=== PATIENT | female | born 1960 | race Caucasian/White ===

== ENCOUNTER 2021-06-12 12:07 | Inpatient (IN) | payer OTHER ==
[2021-06-12 12:56] LABS: Hemoglobin 16.6 g/dL (12.0-15.5); Mean Corpuscular HGB CONC 33.5 g/dL (32.0-36.0); Mean Corpuscular Hemoglobin 32.4 pg (27.0-33.0); Mean Corpuscular Volume 96.7 fl (81.6-98.3); Mean Platelet Volume 9.4 fl (7.4-10.4); Platelet Count 324 10x3/uL (150-450); RBC Distribution Width 13.4 % (11.5-14.5); Red Blood Cell (RBC) Count 5.13 10x6/uL (3.90-5.03); White Blood Cell (WBC) Count 12.2 10x3/uL (3.5-10.5)
[2021-06-12 12:58] LABS: MDiff Complete? YES
[2021-06-12] MEDS ORDERED: Enoxaparin Sodium 80 MG/0.8 ML SYRINGE ONE (13:28)
[2021-06-12] MEDS ORDERED: Magnesium 2 GM/50 ML BAG (IN WATER) ONE (13:29)
[2021-06-12] MEDS ORDERED: Aspirin 325 MG TAB ONE (13:29)
[2021-06-12] MEDS ORDERED: Diltiazem 125 MG/25 ML ONE (13:29)
[2021-06-12 13:36] LABS: Eosinophils 2 % (0-10); Lymphocytes 54 % (21-51); Monocytes 10 % (0-10); Neutrophil 31 % (42-75); Reactive Lymphocytes 2 % (0-10)
[2021-06-12 13:37] LABS: Platelet Morphology Comment Appears Adequate; RBC Morphology Normal
[2021-06-12 13:51] LABS: ALT (SGPT) 10 U/L (8-55); AST (SGOT) 11 U/L (5-34); Albumin 3.9 g/dL (3.4-4.8); Alkaline Phosphatase 73 U/L (40-110); Anion Gap 16 mmol/L (10-20); BUN (Urea Nitrogen) 10 mg/dL (9.8-20.1); Bilirubin, Total 0.3 mg/dL (0.2-1.2); Calc. Creatinine Clearance 0 mL/min (70-130); Calcium 9.2 mg/dL (7.8-10.44); Carbon Dioxide 22 mmol/L (23-31); Chloride 106 mmol/L (98-107); Globulin 3.2 g/dL (2.4-3.5); Glucose 159 mg/dL (80-115); Potassium 4.2 mmol/L (3.5-5.1); Protein, Total 7.1 g/dL (5.8-8.1); Sodium 140 mmol/L (136-145)
[2021-06-12] MEDS ORDERED: hydrOXYzine 25 MG TAB PO PRN (18:30)
[2021-06-12 18:31] LABS: SARS-CoV-2 NAA Rapid Test Not Detected (NotDetected)
[2021-06-12] MEDS: Guaifenesin DM 100-10/5 ML UDCUP PO PRN (19:57)
[2021-06-12] MEDS: Famotidine 20 MG TAB PO SCH (21:12)
[2021-06-12] MEDS: traZODone HCl 50 MG TAB PO PRN (21:12)
[2021-06-12] MEDS: Atorvastatin Calcium 20 MG TAB PO SCH (21:12)
[2021-06-12 21:40] VITALS: BMI 29.8
[2021-06-12] MEDS ORDERED: Enoxaparin Sodium 80 MG/0.8 ML SYRINGE SC SCH (22:15)
[2021-06-12] MEDS: Diltiazem 125 MG in Sodium Chloride 0.9% 100 ML IVPB SCH (22:18)
[2021-06-13] MEDS: Guaifenesin DM 100-10/5 ML UDCUP PO PRN ×2 (01:31→14:54)
[2021-06-13 05:40] LABS: #Basophils 0.1 10x3/uL (0.0-0.2); #Eosinphils 0.1 10x3/uL (0.0-0.5); #Monocytes 0.9 10x3/uL (0.0-1.1); #Neutrophils 4.6 10x3/uL (1.5-8.4); %Basophils 0.6 % (0.0-2.0); %Eosinophils 1.4 % (0.0-6.0); %Lymphocytes 40.7 % (18.0-47.0); %Monocytes 9.6 % (0.0-10.0); %Neutrophils 47.2 % (40.0-75.0); Hemoglobin 15.9 g/dL (12.0-15.5); Mean Corpuscular HGB CONC 32.9 g/dL (32.0-36.0); Mean Corpuscular Hemoglobin 32.7 pg (27.0-33.0); Mean Corpuscular Volume 99.4 fl (81.6-98.3); Mean Platelet Volume 9.6 fl (7.4-10.4); Platelet Count 292 10x3/uL (150-450); RBC Distribution Width 13.2 % (11.5-14.5); Red Blood Cell (RBC) Count 4.86 10x6/uL (3.90-5.03); White Blood Cell (WBC) Count 9.7 10x3/uL (3.5-10.5)
[2021-06-13] MEDS: Diltiazem 125 MG in Sodium Chloride 0.9% 100 ML IVPB SCH (05:44)
[2021-06-13 05:53] LABS: Anion Gap 14 mmol/L (10-20); BUN (Urea Nitrogen) 9 mg/dL (9.8-20.1); Calc. Creatinine Clearance 92 mL/min (70-130); Calcium 9.2 mg/dL (7.8-10.44); Carbon Dioxide 25 mmol/L (23-31); Chloride 107 mmol/L (98-107); Glucose 160 mg/dL (80-115); Potassium 4.3 mmol/L (3.5-5.1); Sodium 142 mmol/L (136-145)
[2021-06-13] MEDS: Famotidine 20 MG TAB PO SCH ×2 (08:16→20:51)
[2021-06-13] MEDS: Aspirin 81 mg Enteric Coated Tablet PO SCH (08:17)
[2021-06-13] MEDS: Lisinopril 10 MG TAB PO SCH (08:17)
[2021-06-13] MEDS: OLANZapine 5 MG TAB PO SCH (08:21)
[2021-06-13] MEDS ORDERED: Diltiazem 125 MG in Sodium Chloride 0.9% 100 ML IVPB SCH (08:45)
[2021-06-13] MEDS ORDERED: Enoxaparin Sodium 80 MG/0.8 ML SYRINGE SC SCH (09:00)
[2021-06-13] MEDS ORDERED: Clopidogrel Bisulfate 75 MG TAB PO SCH (09:00)
[2021-06-13] MEDS: Acetaminophen 325 MG TAB PO PRN (10:17)
[2021-06-13] MEDS: Nicotine 21 MG PATCH TOP SCH (11:39)
[2021-06-13] MEDS ORDERED: Dronedarone HCl 400 MG TAB PO SCH (18:45)
[2021-06-13] MEDS: Apixaban 5 MG TAB PO SCH (20:51)
[2021-06-13] MEDS: traZODone HCl 50 MG TAB PO PRN (20:52)
[2021-06-13] MEDS: Metoprolol Tartrate 25 MG TAB PO SCH (20:52)
[2021-06-13] MEDS: Atorvastatin Calcium 20 MG TAB PO SCH (20:52)
[2021-06-14] MEDS: Guaifenesin DM 100-10/5 ML UDCUP PO PRN ×3 (00:28→11:57)
[2021-06-14] MEDS: Acetaminophen 325 MG TAB PO PRN ×2 (02:15→14:17)
[2021-06-14] MEDS: Dronedarone HCl 400 MG TAB PO SCH ×2 (09:17→16:46)
[2021-06-14] MEDS: Lisinopril 10 MG TAB PO SCH (09:17)
[2021-06-14] MEDS: Aspirin 81 mg Enteric Coated Tablet PO SCH (09:17)
[2021-06-14] MEDS: Famotidine 20 MG TAB PO SCH ×2 (09:18→20:05)
[2021-06-14] MEDS: Apixaban 5 MG TAB PO SCH ×2 (09:18→20:04)
[2021-06-14] MEDS: Metoprolol Tartrate 25 MG TAB PO SCH ×2 (09:18→20:05)
[2021-06-14] MEDS: OLANZapine 5 MG TAB PO SCH (09:21)
[2021-06-14] MEDS: Nicotine 21 MG PATCH TOP SCH (12:27)
[2021-06-14] MEDS: Transdermal Patch Removal TOP SCH (12:27)
[2021-06-14] MEDS: Atorvastatin Calcium 20 MG TAB PO SCH (20:04)
[2021-06-14] MEDS: traZODone HCl 50 MG TAB PO PRN (22:12)
[2021-06-14] MEDS ORDERED: traZODone HCl 50 MG TAB PO PRN (22:45)
[2021-06-14] MEDS ORDERED: traZODone HCl 50 MG TAB PO SCH (22:45)
[2021-06-15] MEDS: Acetaminophen 325 MG TAB PO PRN ×3 (02:13→20:41)
[2021-06-15] MEDS: Guaifenesin DM 100-10/5 ML UDCUP PO PRN ×2 (02:51→20:26)
[2021-06-15] MEDS: Famotidine 20 MG TAB PO SCH ×2 (08:54→20:26)
[2021-06-15] MEDS: Dronedarone HCl 400 MG TAB PO SCH ×2 (08:54→19:13)
[2021-06-15] MEDS: Aspirin 81 mg Enteric Coated Tablet PO SCH (08:55)
[2021-06-15] MEDS: Apixaban 5 MG TAB PO SCH ×2 (08:55→20:26)
[2021-06-15] MEDS: Metoprolol Tartrate 25 MG TAB PO SCH ×2 (08:55→20:27)
[2021-06-15] MEDS: OLANZapine 5 MG TAB PO SCH (09:06)
[2021-06-15] MEDS: Docusate 100 MG CAP PO SCH ×2 (10:32→20:30)
[2021-06-15] MEDS: Miconazole Nitrate Powder 2% 45 gm TOP SCH ×2 (10:59→20:31)
[2021-06-15] MEDS: Nicotine 21 MG PATCH TOP SCH (11:00)
[2021-06-15] MEDS: Transdermal Patch Removal TOP SCH (11:01)
[2021-06-15 13:25] LABS: Hemoglobin 15.5 g/dL (12.0-15.5); Mean Corpuscular HGB CONC 33.3 g/dL (32.0-36.0); Mean Corpuscular Hemoglobin 32.3 pg (27.0-33.0); Mean Corpuscular Volume 96.9 fl (81.6-98.3); Mean Platelet Volume 9.7 fl (7.4-10.4); Platelet Count 293 10x3/uL (150-450); White Blood Cell (WBC) Count 13.7 10x3/uL (3.5-10.5)
[2021-06-15 13:40] LABS: Phosphorus 4.5 mg/dL (2.3-4.7)
[2021-06-15 13:41] LABS: ALT (SGPT) 15 U/L (8-55); AST (SGOT) 14 U/L (5-34); Albumin 3.7 g/dL (3.4-4.8); Alkaline Phosphatase 82 U/L (40-110); Anion Gap 16 mmol/L (10-20); BUN (Urea Nitrogen) 11 mg/dL (9.8-20.1); Bilirubin, Total 0.5 mg/dL (0.2-1.2); Calc. Creatinine Clearance 70 mL/min (70-130); Calcium 8.9 mg/dL (7.8-10.44); Carbon Dioxide 23 mmol/L (23-31); Chloride 103 mmol/L (98-107); Glucose 297 mg/dL (80-115); Magnesium 1.8 mg/dL (1.6-2.6); Potassium 4.4 mmol/L (3.5-5.1); Protein, Total 6.7 g/dL (5.8-8.1); Sodium 138 mmol/L (136-145)
[2021-06-15] MEDS: Digoxin 0.5 MG/2 ML AMP SLOW IVP SCH ×2 (20:25→22:28)
[2021-06-15] MEDS: Atorvastatin Calcium 20 MG TAB PO SCH (20:26)
[2021-06-16] MEDS: Digoxin 0.5 MG/2 ML AMP SLOW IVP SCH (00:26)
[2021-06-16] MEDS: Acetaminophen 325 MG TAB PO PRN ×3 (08:45→17:32)
[2021-06-16] MEDS: Dronedarone HCl 400 MG TAB PO SCH ×2 (08:45→16:43)
[2021-06-16] MEDS: OLANZapine 5 MG TAB PO SCH (08:45)
[2021-06-16] MEDS: Famotidine 20 MG TAB PO SCH (08:46)
[2021-06-16] MEDS: Docusate 100 MG CAP PO SCH (08:46)
[2021-06-16] MEDS: Metoprolol Tartrate 25 MG TAB PO SCH (08:46)
[2021-06-16] MEDS: Aspirin 81 mg Enteric Coated Tablet PO SCH (08:46)
[2021-06-16] MEDS: Apixaban 5 MG TAB PO SCH (08:47)
[2021-06-16] MEDS: Miconazole Nitrate Powder 2% 45 gm TOP SCH (08:47)
[2021-06-16] MEDS: Nicotine 21 MG PATCH TOP SCH (08:47)
[2021-06-16] MEDS: Transdermal Patch Removal TOP SCH (08:48)
[2021-06-16] MEDS ORDERED: Digoxin 0.125 MG TAB PO SCH (09:00)
[2021-06-16] MEDS ORDERED: Metoprolol Tartrate 25 MG TAB PO SCH ×2 (13:00→21:00)
[2021-06-16 16:15] VITALS: BP 116/71; TEMP 98.1
== END 2021-06-16 18:10 | disposition home or self-care (01) | DRG 310 ==
LOC: CSHERS 12:07 → CSHTELE 18:30
PROVIDERS: ADMIT Internal Medicine; ATTEND Internal Medicine
DX: I48.0 Paroxysmal atrial fibrillation (principal); E11.9 Type 2 diabetes mellitus without complications; I10 Essential (primary) hypertension; E78.5 Hyperlipidemia, unspecified; F31.9 Bipolar disorder, unspecified; I25.10 Atherosclerotic heart disease of native coronary artery without angina pectoris; F17.210 Nicotine dependence, cigarettes, uncomplicated; F20.9 Schizophrenia, unspecified; I08.0 Rheumatic disorders of both mitral and aortic valves; I49.5 Sick sinus syndrome; E66.9 Obesity, unspecified; Z20.822 Contact with and (suspected) exposure to COVID-19; Z88.8 Allergy status to other drugs, medicaments and biological substances; Z91.018 Allergy to other foods; Z79.51 Long term (current) use of inhaled steroids; Z79.82 Long term (current) use of aspirin; Z95.5 Presence of coronary angioplasty implant and graft; Z79.899 Other long term (current) drug therapy; Z79.01 Long term (current) use of anticoagulants; Z90.49 Acquired absence of other specified parts of digestive tract; Z90.710 Acquired absence of both cervix and uterus; Z68.29 Body mass index [BMI] 29.0-29.9, adult
CPT/HCPCS: 36415; 71045; 71275; 80048; 80053; 83735; 84100; 84443; 84484; 85025; 85027; 85379; 93005; 93010; 93306; 96365; 96366; 96368; 96372; 96376; J1160; J1650; J3475; J3490; U0002

== ENCOUNTER 2021-06-29 17:16 | Inpatient (IN) | payer OTHER ==
[2021-06-29] MEDS ORDERED: Aspirin Chewable 81 MG TAB ONE (18:10)
[2021-06-29] MEDS ORDERED: Diltiazem 125 MG/25 ML ONE (18:10)
[2021-06-29 18:15] LABS: ALT (SGPT) 12 U/L (8-55); AST (SGOT) 10 U/L (5-34); Albumin 4.1 g/dL (3.4-4.8); Alkaline Phosphatase 81 U/L (40-110); Anion Gap 16 mmol/L (10-20); BUN (Urea Nitrogen) 11 mg/dL (9.8-20.1); Bilirubin, Total 0.4 mg/dL (0.2-1.2); CK (CPK) 67 U/L (29-168); Calc. Creatinine Clearance 0 mL/min (70-130); Calcium 9.2 mg/dL (7.8-10.44); Carbon Dioxide 24 mmol/L (23-31); Chloride 102 mmol/L (98-107); Globulin 3.5 g/dL (2.4-3.5); Glucose 304 mg/dL (80-115); Potassium 4.1 mmol/L (3.5-5.1); Protein, Total 7.6 g/dL (5.8-8.1); Sodium 138 mmol/L (136-145)
[2021-06-29 18:46] LABS: #Basophils 0.1 10x3/uL (0.0-0.2); #Eosinphils 0.2 10x3/uL (0.0-0.5); #Monocytes 0.7 10x3/uL (0.0-1.1); #Neutrophils 4.3 10x3/uL (1.5-8.4); %Basophils 0.8 % (0.0-2.0); %Eosinophils 1.9 % (0.0-6.0); %Lymphocytes 39.7 % (18.0-47.0); %Monocytes 8.1 % (0.0-10.0); Hemoglobin 16.3 g/dL (12.0-15.5); Mean Corpuscular HGB CONC 33.5 g/dL (32.0-36.0); Mean Corpuscular Volume 95.3 fl (81.6-98.3); Mean Platelet Volume 9.8 fl (7.4-10.4); Platelet Count 239 10x3/uL (150-450); White Blood Cell (WBC) Count 8.8 10x3/uL (3.5-10.5)
[2021-06-29] MEDS ORDERED: cefTRIAXone\\ROCEPHIN 1 GM VIAL ONE (18:58)
[2021-06-29] MEDS ORDERED: Dextrose 50% Abboject 50 ML SYRINGE SLOW IVP PRN (19:13)
[2021-06-29] MEDS ORDERED: Acetaminophen 325 MG TAB PO PRN (19:13)
[2021-06-29] MEDS ORDERED: Dextrose 5% in Water 1,000 ML IV PRN (19:13)
[2021-06-29] MEDS ORDERED: Guaifenesin DM 100-10/5 ML UDCUP PO PRN (19:13)
[2021-06-29] MEDS ORDERED: Zolpidem Tartrate 5 MG TAB PO PRN (19:13)
[2021-06-29] MEDS ORDERED: Senokot S 8.6-50 MG TAB PO PRN (19:13)
[2021-06-29] MEDS ORDERED: Calcium Carbonate 500 MG ChewTAB PO PRN (19:13)
[2021-06-29] MEDS ORDERED: Diltiazem 125 MG in Sodium Chloride 0.9% 100 ML IVPB SCH (19:30)
[2021-06-29 20:13] LABS: SARS-CoV-2 NAA Rapid Test Not Detected (NotDetected)
[2021-06-29 20:37] LABS: Lactic Acid 1.9 mmol/L (0.5-2.2)
[2021-06-29] MEDS ORDERED: methylPREDNISolone Sod Succ/PF 125 MG/2 ML VIAL IVP SCH (21:45)
[2021-06-29] MEDS ORDERED: Digoxin 0.125 MG TAB PO SCH (21:45)
[2021-06-29 23:25] LABS: Lactic Acid 2.1 mmol/L (0.5-2.2)
[2021-06-29] MEDS: Benzonatate 100 MG CAP PO SCH (23:52)
[2021-06-29] MEDS: Metoprolol Tartrate 25 MG TAB PO SCH (23:52)
[2021-06-29] MEDS: Nicotine 21 MG PATCH TD SCH (23:52)
[2021-06-29] MEDS: Famotidine 20 MG TAB PO SCH (23:52)
[2021-06-29] MEDS: Atorvastatin Calcium 20 MG TAB PO SCH (23:52)
[2021-06-29] MEDS: guaiFENesin ER 600 MG TAB PO SCH (23:52)
[2021-06-29] MEDS: Apixaban 5 MG TAB PO SCH (23:53)
[2021-06-30 00:03] LABS: Legionella Urinary Ag Negative (Negative); Strep pneumo Urine Ag NEGATIVE (NEGATIVE)
[2021-06-30] MEDS: HumaLOG 300 UNITS/3 ML VIAL SC PRN ×4 (04:52→20:42)
[2021-06-30 07:24] LABS: #Basophils 0.1 10x3/uL (0.0-0.2); #Monocytes 0.1 10x3/uL (0.0-1.1); #Neutrophils 7.1 10x3/uL (1.5-8.4); %Basophils 0.7 % (0.0-2.0); %Eosinophils 0.2 % (0.0-6.0); %Lymphocytes 11.9 % (18.0-47.0); %Monocytes 1.4 % (0.0-10.0); Hemoglobin 16.8 g/dL (12.0-15.5); Mean Corpuscular HGB CONC 33.1 g/dL (32.0-36.0); Mean Corpuscular Hemoglobin 31.8 pg (27.0-33.0); Mean Corpuscular Volume 96.2 fl (81.6-98.3); Platelet Count 246 10x3/uL (150-450); RBC Distribution Width 13.2 % (11.5-14.5); Red Blood Cell (RBC) Count 5.28 10x6/uL (3.90-5.03); White Blood Cell (WBC) Count 8.4 10x3/uL (3.5-10.5)
[2021-06-30 07:46] LABS: Anion Gap 17 mmol/L (10-20); BUN (Urea Nitrogen) 13 mg/dL (9.8-20.1); Calc. Creatinine Clearance 87 mL/min (70-130); Calcium 9.8 mg/dL (7.8-10.44); Carbon Dioxide 22 mmol/L (23-31); Chloride 100 mmol/L (98-107); Glucose 400 mg/dL (80-115); Potassium 4.2 mmol/L (3.5-5.1); Sodium 135 mmol/L (136-145)
[2021-06-30] MEDS: Budesonide 0.5 MG/2 ML NEB NEB SCH ×2 (07:50→19:15)
[2021-06-30] MEDS ORDERED: Digoxin 0.125 MG TAB PO SCH ×2 (09:00→13:00)
[2021-06-30] MEDS: Apixaban 5 MG TAB PO SCH ×2 (09:26→20:39)
[2021-06-30] MEDS: Aspirin Chewable 81 MG TAB PO SCH (09:26)
[2021-06-30] MEDS: Metoprolol Tartrate 25 MG TAB PO SCH ×2 (09:27→20:39)
[2021-06-30] MEDS: predniSONE 20 MG TAB PO SCH (09:27)
[2021-06-30] MEDS: guaiFENesin ER 600 MG TAB PO SCH ×2 (09:27→20:39)
[2021-06-30] MEDS: clonazePAM 1 MG TAB PO SCH ×3 (09:27→20:39)
[2021-06-30] MEDS: Famotidine 20 MG TAB PO SCH ×2 (09:27→20:38)
[2021-06-30] MEDS: Dronedarone HCl 400 MG TAB PO SCH ×2 (09:27→16:07)
[2021-06-30] MEDS: Benzonatate 100 MG CAP PO SCH ×3 (09:27→20:39)
[2021-06-30] MEDS: Alogliptin 6.25 MG TAB PO SCH (09:30)
[2021-06-30] MEDS: OLANZapine 5 MG TAB PO SCH (09:37)
[2021-06-30] MEDS ORDERED: Lantus 1000 UNITS/10 ML VIAL SC SCH (14:15)
[2021-06-30 15:03] LABS: Cardiac Risk 4.1 (Less than 4.5)
[2021-06-30 17:01] LABS: Hemoglobin A1c 9.3 % (4.0-6.0)
[2021-06-30] MEDS ORDERED: cefTRIAXone\\ROCEPHIN 1 GM in Sodium Chloride 0.9% 100 ML IVPB SCH (19:30)
[2021-06-30] MEDS: Nicotine 21 MG PATCH TD SCH (20:38)
[2021-06-30] MEDS: traZODone HCl 50 MG TAB PO SCH (20:39)
[2021-06-30] MEDS: Atorvastatin Calcium 20 MG TAB PO SCH (20:39)
[2021-06-30] MEDS: Doxycycline 100 MG CAP PO SCH (20:39)
[2021-07-01] MEDS: guaiFENesin ER 600 MG TAB PO SCH ×2 (06:01→20:56)
[2021-07-01] MEDS: predniSONE 20 MG TAB PO SCH (06:01)
[2021-07-01] MEDS: Benzonatate 100 MG CAP PO SCH ×3 (06:01→20:55)
[2021-07-01] MEDS: clonazePAM 1 MG TAB PO SCH ×3 (06:02→20:57)
[2021-07-01] MEDS: Aspirin Chewable 81 MG TAB PO SCH (06:02)
[2021-07-01] MEDS: Apixaban 5 MG TAB PO SCH ×2 (06:02→20:58)
[2021-07-01] MEDS: Dronedarone HCl 400 MG TAB PO SCH ×2 (06:03→16:33)
[2021-07-01] MEDS: Famotidine 20 MG TAB PO SCH ×2 (06:03→20:58)
[2021-07-01] MEDS: Metoprolol Tartrate 25 MG TAB PO SCH ×2 (06:03→20:57)
[2021-07-01] MEDS: OLANZapine 5 MG TAB PO SCH (06:08)
[2021-07-01] MEDS: Doxycycline 100 MG CAP PO SCH ×2 (06:09→20:55)
[2021-07-01] MEDS ORDERED: Digoxin 0.25 MG TAB PO SCH (06:15)
[2021-07-01] MEDS: Budesonide 0.5 MG/2 ML NEB NEB SCH ×2 (07:40→19:25)
[2021-07-01] MEDS: Alogliptin 6.25 MG TAB PO SCH (12:06)
[2021-07-01] MEDS: Lantus 1000 UNITS/10 ML VIAL SC SCH (12:06)
[2021-07-01] MEDS: HumaLOG 300 UNITS/3 ML VIAL SC PRN ×4 (12:06→23:49)
[2021-07-01] MEDS: traZODone HCl 50 MG TAB PO SCH (20:58)
[2021-07-01] MEDS ORDERED: Nicotine 21 MG PATCH TD SCH (21:00)
[2021-07-01] MEDS ORDERED: Atorvastatin Calcium 40 MG TAB PO SCH (21:00)
[2021-07-02] MEDS: HumaLOG 300 UNITS/3 ML VIAL SC PRN (05:59)
[2021-07-02] MEDS: Budesonide 0.5 MG/2 ML NEB NEB SCH (07:05)
[2021-07-02 07:26] LABS: ALT (SGPT) 21 U/L (8-55); AST (SGOT) 19 U/L (5-34); Albumin 3.5 g/dL (3.4-4.8); Alkaline Phosphatase 70 U/L (40-110); Anion Gap 16 mmol/L (10-20); BUN (Urea Nitrogen) 28 mg/dL (9.8-20.1); Bilirubin, Total 0.4 mg/dL (0.2-1.2); Calc. Creatinine Clearance 87 mL/min (70-130); Calcium 9.3 mg/dL (7.8-10.44); Carbon Dioxide 23 mmol/L (23-31); Chloride 104 mmol/L (98-107); Globulin 3.4 g/dL (2.4-3.5); Glucose 287 mg/dL (80-115); Potassium 4.2 mmol/L (3.5-5.1); Protein, Total 6.9 g/dL (5.8-8.1); Sodium 139 mmol/L (136-145)
[2021-07-02] MEDS: Dronedarone HCl 400 MG TAB PO SCH (07:32)
[2021-07-02] MEDS: Doxycycline 100 MG CAP PO SCH (07:32)
[2021-07-02] MEDS: guaiFENesin ER 600 MG TAB PO SCH (07:33)
[2021-07-02] MEDS: Alogliptin 6.25 MG TAB PO SCH (07:33)
[2021-07-02] MEDS: Apixaban 5 MG TAB PO SCH (07:33)
[2021-07-02] MEDS: Aspirin Chewable 81 MG TAB PO SCH (07:33)
[2021-07-02] MEDS: Famotidine 20 MG TAB PO SCH (07:33)
[2021-07-02] MEDS: Metoprolol Tartrate 25 MG TAB PO SCH (07:33)
[2021-07-02] MEDS: clonazePAM 1 MG TAB PO SCH (07:33)
[2021-07-02] MEDS: Benzonatate 100 MG CAP PO SCH (07:34)
[2021-07-02] MEDS: predniSONE 20 MG TAB PO SCH (07:34)
[2021-07-02] MEDS: OLANZapine 5 MG TAB PO SCH (07:34)
[2021-07-02] MEDS: Lantus 1000 UNITS/10 ML VIAL SC SCH (07:34)
[2021-07-02 07:51] VITALS: BP 106/71; TEMP 97.4
[2021-07-02 07:53] LABS: #Basophils 0.1 10x3/uL (0.0-0.2); #Eosinphils 0.1 10x3/uL (0.0-0.5); #Monocytes 1.2 10x3/uL (0.0-1.1); #Neutrophils 7.4 10x3/uL (1.5-8.4); %Basophils 0.5 % (0.0-2.0); %Eosinophils 0.5 % (0.0-6.0); %Lymphocytes 40.1 % (18.0-47.0); %Monocytes 8.3 % (0.0-10.0); %Neutrophils 50.1 % (40.0-75.0); Hemoglobin 15.7 g/dL (12.0-15.5); Mean Corpuscular HGB CONC 32.7 g/dL (32.0-36.0); Mean Corpuscular Hemoglobin 32.1 pg (27.0-33.0); Mean Corpuscular Volume 98.2 fl (81.6-98.3); Mean Platelet Volume 9.9 fl (7.4-10.4); Platelet Count 266 10x3/uL (150-450); RBC Distribution Width 13.4 % (11.5-14.5); Red Blood Cell (RBC) Count 4.89 10x6/uL (3.90-5.03); White Blood Cell (WBC) Count 14.8 10x3/uL (3.5-10.5)
[2021-07-02] MEDS ORDERED: Digoxin 0.25 MG TAB PO SCH (09:00)
== END 2021-07-02 12:29 | disposition home or self-care (01) | DRG 309 ==
LOC: CSHERS 17:16 → CSHTELE 21:15
PROVIDERS: ADMIT Student in an Organized Health Care Education/Training Program; ATTEND Family Medicine
DX: I48.92 Unspecified atrial flutter (principal); E87.2 Acidosis; J44.1 Chronic obstructive pulmonary disease with (acute) exacerbation; J93.83 Other pneumothorax; Z20.822 Contact with and (suspected) exposure to COVID-19; I10 Essential (primary) hypertension; I25.10 Atherosclerotic heart disease of native coronary artery without angina pectoris; F17.210 Nicotine dependence, cigarettes, uncomplicated; R91.8 Other nonspecific abnormal finding of lung field; J06.9 Acute upper respiratory infection, unspecified; E11.51 Type 2 diabetes mellitus with diabetic peripheral angiopathy without gangrene; E78.2 Mixed hyperlipidemia; I48.0 Paroxysmal atrial fibrillation; J47.9 Bronchiectasis, uncomplicated; F31.9 Bipolar disorder, unspecified; E11.65 Type 2 diabetes mellitus with hyperglycemia; I49.5 Sick sinus syndrome; F20.9 Schizophrenia, unspecified; Z90.49 Acquired absence of other specified parts of digestive tract; Z88.8 Allergy status to other drugs, medicaments and biological substances; Z79.82 Long term (current) use of aspirin; Z79.899 Other long term (current) drug therapy; Z79.01 Long term (current) use of anticoagulants; Z90.710 Acquired absence of both cervix and uterus; Z98.890 Other specified postprocedural states; Z71.6 Tobacco abuse counseling
CPT/HCPCS: 0240U; 36415; 36416; 71045; 71260; 80048; 80053; 80061; 82550; 83036; 83525; 83605; 83735; 83880; 84145; 84443; 84484; 84681; 85025; 87449; 87899; 93005; 93010; 94640; 94760; 94762; 96365; 96366; 96368; 96376; J0696; J1815; J2930; J3490; J7512; J7620; J7626

== ENCOUNTER 2021-07-18 11:05 | Outpatient (CLI) | payer OTHER | END 2021-07-18 11:06 | disposition home or self-care (01) | LOC: CSHRAD 11:05 | PROVIDERS: ATTEND Physician Assistant | DX: J18.9 Pneumonia, unspecified organism (principal) | CPT/HCPCS: 71046 ==

== ENCOUNTER 2021-07-19 17:29 | Emergency (ER) | payer OTHER ==
[2021-07-19] MEDS ORDERED: Ketorolac Tromethamine 30 MG/ML VIAL ONE (18:23)
[2021-07-19] MEDS ORDERED: Metoprolol Tartrate 5 MG/5 ML VIAL ONE (18:23)
[2021-07-19 18:29] LABS: #Basophils 0.1 10x3/uL (0.0-0.2); #Eosinphils 0.1 10x3/uL (0.0-0.5); #Monocytes 0.7 10x3/uL (0.0-1.1); #Neutrophils 3.8 10x3/uL (1.5-8.4); %Basophils 0.6 % (0.0-2.0); %Eosinophils 1.6 % (0.0-6.0); %Lymphocytes 41.7 % (18.0-47.0); %Neutrophils 46.5 % (40.0-75.0); Hemoglobin 15.7 g/dL (12.0-15.5); Mean Corpuscular HGB CONC 33.9 g/dL (32.0-36.0); Mean Corpuscular Hemoglobin 32.6 pg (27.0-33.0); Mean Corpuscular Volume 96.3 fl (81.6-98.3); Mean Platelet Volume 10.3 fl (7.4-10.4); Platelet Count 182 10x3/uL (150-450); RBC Distribution Width 13.1 % (11.5-14.5); Red Blood Cell (RBC) Count 4.81 10x6/uL (3.90-5.03); White Blood Cell (WBC) Count 8.1 10x3/uL (3.5-10.5)
[2021-07-19 18:40] LABS: ALT (SGPT) 14 U/L (8-55); AST (SGOT) 11 U/L (5-34); Albumin 3.8 g/dL (3.4-4.8); Alkaline Phosphatase 62 U/L (40-110); Anion Gap 15 mmol/L (10-20); BUN (Urea Nitrogen) 11 mg/dL (9.8-20.1); Bilirubin, Total 0.3 mg/dL (0.2-1.2); Calc. Creatinine Clearance 0 mL/min (70-130); Calcium 9.3 mg/dL (7.8-10.44); Carbon Dioxide 25 mmol/L (23-31); Chloride 102 mmol/L (98-107); Globulin 3.5 g/dL (2.4-3.5); Glucose 292 mg/dL (80-115); Potassium 4.5 mmol/L (3.5-5.1); Protein, Total 7.3 g/dL (5.8-8.1); Sodium 137 mmol/L (136-145)
[2021-07-19] MEDS ORDERED: HYDROcodone/Acetaminophen 5/325 mg Tablet ONE (18:52)
== END 2021-07-19 19:27 | disposition home or self-care (01) ==
LOC: CSHERS 17:29
DX: R07.89 Other chest pain (principal); M54.50 Low back pain, unspecified; E11.9 Type 2 diabetes mellitus without complications; I48.91 Unspecified atrial fibrillation; I10 Essential (primary) hypertension; E78.5 Hyperlipidemia, unspecified; Z87.891 Personal history of nicotine dependence
CPT/HCPCS: 71045; 80053; 83880; 85025; 93005; 96374; 96375; J1885

== ENCOUNTER 2021-07-22 18:41 | Emergency (ER) | payer OTHER ==
[2021-07-22] MEDS ORDERED: Morphine 4 MG/ML VIAL ONE ×2 (19:46→22:18)
[2021-07-22 20:01] LABS: #Eosinphils 0.1 10x3/uL (0.0-0.5); #Monocytes 0.9 10x3/uL (0.0-1.1); #Neutrophils 2.9 10x3/uL (1.5-8.4); %Basophils 0.6 % (0.0-2.0); %Eosinophils 1.7 % (0.0-6.0); %Lymphocytes 43.2 % (18.0-47.0); %Monocytes 12.1 % (0.0-10.0); %Neutrophils 41.8 % (40.0-75.0); Hemoglobin 15.1 g/dL (12.0-15.5); Mean Corpuscular HGB CONC 33.9 g/dL (32.0-36.0); Mean Corpuscular Hemoglobin 32.4 pg (27.0-33.0); Mean Corpuscular Volume 95.7 fl (81.6-98.3); Mean Platelet Volume 10.2 fl (7.4-10.4); Platelet Count 193 10x3/uL (150-450); RBC Distribution Width 13.4 % (11.5-14.5); Red Blood Cell (RBC) Count 4.66 10x6/uL (3.90-5.03)
[2021-07-22 20:14] LABS: ALT (SGPT) 18 U/L (8-55); AST (SGOT) 11 U/L (5-34); Acetaminophen Less than 6.0 mcg/mL (10.0-30.0); Albumin 3.8 g/dL (3.4-4.8); Alcohol Less than 10 mg/dL (Less than 10); Alkaline Phosphatase 63 U/L (40-110); Anion Gap 13 mmol/L (10-20); BUN (Urea Nitrogen) 10 mg/dL (9.8-20.1); Bilirubin, Total 0.2 mg/dL (0.2-1.2); Calc. Creatinine Clearance 0 mL/min (70-130); Calcium 9.1 mg/dL (7.8-10.44); Carbon Dioxide 26 mmol/L (23-31); Chloride 102 mmol/L (98-107); Globulin 2.8 g/dL (2.4-3.5); Glucose 351 mg/dL (80-115); Potassium 4.7 mmol/L (3.5-5.1); Protein, Total 6.6 g/dL (5.8-8.1); Salicylate Less than 8.0 mg/dL (15.0-30.0); Sodium 136 mmol/L (136-145)
[2021-07-22 20:36] LABS: Amphetamine Not Detected (NotDetected); Barbiturates Screen Not Detected (NotDetected); Benzodiazepine Screen Not Detected (NotDetected); Cocaine Metabolite Screen Not Detected (NotDetected); Methadone Not Detected (NotDetected); Methamphetamine Not Detected (NotDetected); Opiate Screen Detected (NotDetected); Oxycodone Screen Not Detected (NotDetected); Phencyclidine (PCP) Not Detected (NotDetected); THC/Cannabinoid Screen Not Detected (NotDetected); Tricyclic Screen Not Detected (NotDetected)
== END 2021-07-22 23:00 | disposition short-term general hospital (02) ==
LOC: CSHERS 18:41
DX: I48.92 Unspecified atrial flutter (principal); M54.50 Low back pain, unspecified; G89.29 Other chronic pain; I10 Essential (primary) hypertension; E11.9 Type 2 diabetes mellitus without complications; E78.5 Hyperlipidemia, unspecified; Z87.891 Personal history of nicotine dependence
CPT/HCPCS: 71045; 80053; 80306; 80307; 83735; 83880; 84484; 85025; 93005; 96374; 96376; J2270